=== PATIENT | female | born 1965 | race Caucasian/White ===

== ENCOUNTER 2019-01-26 00:41 | Emergency (ER) | payer MEDICARE ==
--- NOTE | 2019-01-26 01:06 | EDM.PDOCBH ---
ED HPI GENERAL MEDICAL PROBLEM - General Chief Complaint: Behavioral/Psych Stated Complaint: INTOXICATED AND MENTAL HEALTH Time Seen by Provider: 01/26/19 00:46 Source of Information: Reports: Patient, Police History Limitations: Reports: Intoxication - History of Present Illness INITIAL COMMENTS - FREE TEXT/NARRATIVE: The patient presents with the [employer] for alcohol intoxication and suicidal and homicidal ideation. The patient does admit to drinking heavily tonight. She says she did this because she is off all of her medications for a month. She moved here from [place] and her doctor was going to send her prescriptions up here but it did not go through. She says she has been seen at [facility] and she is scheduled to see a doctor on the . She says she has PTSD, anxiety and depression. She has no chest pain or shortness of breath now. She has no abdominal pain, nausea or vomiting. Onset: Gradual Duration: Hour(s): Severity: Moderate Improves with: Reports: None Worsens with: Reports: None Associated Symptoms: Reports: No Other Symptoms - Related Data Allergies Allergy/AdvReac Type Severity Reaction Status Date / Time Sulfa (Sulfonamide Allergy Vomiting Verified 01/26/19 00:58 Antibiotics) ED ROS GENERAL - Review of Systems Review Of Systems: See Below Constitutional: Reports: No Symptoms HEENT: Reports: No Symptoms Respiratory: Reports: No Symptoms Cardiovascular: Reports: No Symptoms Endocrine: Reports: No Symptoms GI/Abdominal: Reports: No Symptoms : Reports: No Symptoms Musculoskeletal: Reports: No Symptoms Skin: Reports: No Symptoms Neurological: Reports: No Symptoms Psychiatric: Reports: Suicidal Ideation ED EXAM, BEHAVIORAL HEALTH - Physical Exam Exam: See Below Exam Limited By: Intoxication General Appearance: Alert, No Apparent Distress Ears: Normal External Exam Nose: Normal Inspection Head: Atraumatic, Normocephalic Neck: Normal Inspection Respiratory/Chest: No Respiratory Distress, Lungs Clear, Normal Breath Sounds Cardiovascular: Regular Rate, Rhythm, No Edema, No Murmur GI/Abdominal: Soft, Non-Tender, No Organomegaly, No Mass Back Exam: Normal Inspection Extremities: Normal Inspection Neurological: Alert, No Motor/Sensory Deficits, Other (Slurred speech) Psychiatric: Alert COURSE, BEHAVIORAL HEALTH COMP - Course Vital Signs: Last Vital Signs Temp 96.8 F 01/26/19 00:54 Pulse 96 01/26/19 00:54 Resp 19 01/26/19 00:54 BP 108/76 01/26/19 00:54 Pulse Ox 94 L 01/26/19 00:54 Orders, Labs, Meds: Active Orders 24 hr Category Date Time Status Cardiac Monitoring [RC] . DIRECTED Care 01/26/19 00:53 Active Laboratory Tests 01/26/19 01/26/19 01/26/19 Range/Units 01:03 01:03 01:03 WBC 7.02 (3.98-10.04) K/mm3 RBC 4.70 (3.98-5.22) M/mm3 Hgb 15.0 (11.2-15.7) gm/L Hct 43.3 (34.1-44.9) % MCV 92.1 (79.4-94.8) fl MCH 31.9 (25.6-32.2) pg MCHC 34.6 (32.2-35.5) g/dl RDW Std Deviation 42.9 (36.4-46.3) fL Plt Count 148 L (182-369) K/mm3 MPV 10.1 (9.4-12.3) fl Neut % (Auto) 26.6 L (34.0-71.1) % Lymph % (Auto) 64.2 H (19.3-51.7) % [place] % (Auto) 7.4 (4.7-12.5) % Eos % (Auto) 1.6 (0.7-5.8) Baso % (Auto) 0.1 (0.1-1.2) % Neut # (Auto) 1.86 (1.56-6.13) K/mm3 Lymph # (Auto) 4.51 H (1.18-3.74) K/mm3 [place] # (Auto) 0.52 H (0.24-0.36) K/mm3 Eos # (Auto) 0.11 (0.04-0.36) K/mm3 Baso # (Auto) 0.01 (0.01-0.08) K/mm3 Sodium 145 (136-145) mEq/L Potassium 2.7 L (3.5-5.1) mEq/L Chloride 107 (98-107) mEq/L Carbon Dioxide 23 (21-32) mEq/L Anion Gap 17.7 H (5-15) BUN 4 L (7-18) mg/dL Creatinine 0.8 (0.55-1.02) mg/dL Est Cr Clr Drug Dosing 68.27 mL/min Estimated GFR (MDRD) > 60 (>60) mL/min BUN/Creatinine Ratio 5.0 L (14-18) Glucose 138 H (74-106) mg/dL Calcium 8.9 (8.5-10.1) mg/dL Total Bilirubin 0.4 (0.2-1.0) mg/dL AST 45 H (15-37) U/L ALT 33 (14-59) U/L Alkaline Phosphatase 75 (46-116) U/L Total Protein 7.7 (6.4-8.2) g/dl Albumin 3.9 (3.4-5.0) g/dl Globulin 3.8 gm/dL Albumin/Globulin Ratio 1.0 (1-2) TSH 3rd Generation 4.966 H (0.358-3.74) uIU/mL Salicylates 4.6 (2.8-20) mg/dL Urine Opiates Screen (ZUWGBG=983) Ur Buprenorphine Scrn (CUTOFF=10) Ur Oxycodone Screen (TRM7LL=051) Urine Methadone Screen (BCHAVG=299) Ur Propoxyphene Screen (UCJELF=624) Acetaminophen 0 L (10-30) ug/mL Ur Barbiturates Screen (MYQVSK=130) Ur Tricyclics Screen (XOBUFE=792) Ur Phencyclidine Scrn (CUTOFF=25) Ur Amphetamine Screen (RGFHNV=065) U Methamphetamines Scrn (SHNKFB=382) U Benzodiazepines Scrn (JGQFXW=083) U Cocaine Metab Screen (QBWMCE=079) U Marijuana (THC) Screen (CUTOFF=50) Ethyl Alcohol 0.27 (0.00) gm% 01/26/19 Range/Units 01:10 WBC (3.98-10.04) K/mm3 RBC (3.98-5.22) M/mm3 Hgb (11.2-15.7) gm/L Hct (34.1-44.9) % MCV (79.4-94.8) fl MCH (25.6-32.2) pg MCHC (32.2-35.5) g/dl RDW Std Deviation (36.4-46.3) fL Plt Count (182-369) K/mm3 MPV (9.4-12.3) fl Neut % (Auto) (34.0-71.1) % Lymph % (Auto) (19.3-51.7) % [place] % (Auto) (4.7-12.5) % Eos % (Auto) (0.7-5.8) Baso % (Auto) (0.1-1.2) % Neut # (Auto) (1.56-6.13) K/mm3 Lymph # (Auto) (1.18-3.74) K/mm3 [place] # (Auto) (0.24-0.36) K/mm3 Eos # (Auto) (0.04-0.36) K/mm3 Baso # (Auto) (0.01-0.08) K/mm3 Sodium (136-145) mEq/L Potassium (3.5-5.1) mEq/L Chloride (98-107) mEq/L Carbon Dioxide (21-32) mEq/L Anion Gap (5-15) BUN (7-18) mg/dL Creatinine (0.55-1.02) mg/dL Est Cr Clr Drug Dosing mL/min Estimated GFR (MDRD) (>60) mL/min BUN/Creatinine Ratio (14-18) Glucose (74-106) mg/dL Calcium (8.5-10.1) mg/dL Total Bilirubin (0.2-1.0) mg/dL AST (15-37) U/L ALT (14-59) U/L Alkaline Phosphatase (46-116) U/L Total Protein (6.4-8.2) g/dl Albumin (3.4-5.0) g/dl Globulin gm/dL Albumin/Globulin Ratio (1-2) TSH 3rd Generation (0.358-3.74) uIU/mL Salicylates (2.8-20) mg/dL Urine Opiates Screen Negative (XMLMIL=623) Ur Buprenorphine Scrn Negative (CUTOFF=10) Ur Oxycodone Screen Negative (MWO1HF=359) Urine Methadone Screen Negative (ZTJMED=844) Ur Propoxyphene Screen Negative (ZNDBJB=961) Acetaminophen (10-30) ug/mL Ur Barbiturates Screen Negative (YNGLVP=221) Ur Tricyclics Screen Negative (HQRGTX=798) Ur Phencyclidine Scrn Negative (CUTOFF=25) Ur Amphetamine Screen Negative (EVWPTP=375) U Methamphetamines Scrn Negative (SJOZKP=804) U Benzodiazepines Scrn Negative (ZZODYH=279) U Cocaine Metab Screen Negative (EPAWKI=969) U Marijuana (THC) Screen Presumptive positive H (CUTOFF=50) Ethyl Alcohol (0.00) gm% Re-Assessment/Re-Exam: I ordered labs and a urine drug screen. Her CBC looks good. her K was low at 2.7. Her anion gap is elevated at 17.7. Her glucose is elevated at 136. Her AST is elevated at 45. Her TSH is slightly elevated at 4.966. Her salicylates are normal. Her acetaminophen is negative. Her urine drug screen was positive for marijuana. Her ETOH is elevated at 0.27. I feel she may need some help but she is intoxicated now. I will let her rest here until morning and get her some help. She slept for awhile and when she woke up she was more calm and making more sense. She asked if she was on a hold and my nurse told her no. We were just letting her rest and then going to call [facility] in the morning. She wanted to leave so I discharged her. I do not think she is suicidal. Departure - Departure Time of Disposition: 03:30 Disposition: Home, Self-Care 01 Condition: Good Clinical Impression: Alcohol abuse, Hypokalemia Alcohol intoxication Qualifiers: Complication of substance-induced condition: uncomplicated Qualified Code(s): F10.920 - Alcohol use, unspecified with intoxication, uncomplicated - Discharge Information *PRESCRIPTION DRUG MONITORING PROGRAM REVIEWED*: Not Applicable *COPY OF PRESCRIPTION DRUG MONITORING REPORT IN PATIENT GISELLA: Not Applicable Referrals: PCP,None [Primary Care Provider] - Emily Darby PA-C [Physician Day Care Home Provider] - 1 Week Forms: ED Department Discharge Additional Instructions: Call [facility] in the morning. Their number is . Take a vitamin with potassium. Follow up with your doctor within a week. Please return if you are worse. - My Orders Last 24 Hours: My Active Orders 01/26/19 00:53 Cardiac Monitoring [RC] . DIRECTED - Assessment/Plan Last 24 Hours: My Active Orders 01/26/19 00:53 Cardiac Monitoring [RC] . DIRECTED
[2019-01-26 01:42] LABS: ACETAMINOPHEN 0 ug/mL (10-30)
== END 2019-01-26 03:30 | disposition home or self-care (01) ==
LOC: JD.ED 00:41
DX: F10.129 Alcohol abuse with intoxication, unspecified (principal); E87.6 Hypokalemia; Z88.2 Allergy status to sulfonamides; Y90.0 Blood alcohol level of less than 20 mg/100 ml
CPT/HCPCS: 36415; 80053; 80306; 84443; 85025; 99285; G0480; 99282

== ENCOUNTER 2019-01-26 06:39 | Emergency (ER) | payer MEDICARE ==
[2019-01-26] MEDS ORDERED: LORazepam 1 MG Tab PO ONE (07:33)
[2019-01-26] MEDS ORDERED: risperiDONE 1 MG Tab PO ONE (07:34)
--- NOTE | 2019-01-26 07:47 | EDM.PDOCBH ---
ED HPI GENERAL MEDICAL PROBLEM - General Chief Complaint: Behavioral/Psych Stated Complaint: SUICIDAL AND HOMICIDAL IDEATIONS/ MENTAL HEALTH Time Seen by Provider: 01/26/19 07:21 Source of Information: Reports: Patient, RN Notes Reviewed - History of Present Illness INITIAL COMMENTS - FREE TEXT/NARRATIVE: Patient returns to ED with mental health concerns. She has moved here from [place] apparently following her boyfriend or former . She is out or completely off of medication. She states she has been told she has history of bipolar and schizophrenia. She is apparently self-medicating with alcohol. She was een here in the ED a few hours ago moderately intoxicated. She was medically cleared and the plan was to allow her to wait for someone from [facility] to come pick her up and see her this morning but she self discharged apparently needing to "go get a smoke". Now she registered again a short time ago with no new concerns, mainly wanting to get back on her prior medications. She does feel anxious and "stressed out" especially being off of her medications. She denies any suicidal thoughts or any thoughts of self -harm at this time. She denies any current hallucinations. - Related Data Allergies Allergy/AdvReac Type Severity Reaction Status Date / Time Sulfa (Sulfonamide Allergy Vomiting Verified 01/26/19 07:14 Antibiotics) Home Meds: Home Meds Potassium Chloride 10 meq PO DAILY #30 tablet.er 01/26/19 [Rx] Past Medical History Psychiatric History: Reports: Anxiety, PTSD - Infectious Disease History Infectious Disease History: Reports: Hepatitis C ED ROS GENERAL - Review of Systems Review Of Systems: See Below Constitutional: Reports: No Symptoms HEENT: Denies: Throat Pain Respiratory: Denies: Shortness of Breath Cardiovascular: Denies: Chest Pain GI/Abdominal: Denies: Abdominal Pain, Nausea, Vomiting Musculoskeletal: Reports: No Symptoms Skin: Reports: No Symptoms Neurological: Reports: No Symptoms ED EXAM, BEHAVIORAL HEALTH - Physical Exam Exam: See Below General Appearance: Alert, No Apparent Distress Eye Exam: Bilateral Eye: PERRL Throat/Mouth: Normal Inspection Head: Atraumatic Neck: Supple Respiratory/Chest: No Respiratory Distress, Lungs Clear, Normal Breath Sounds Cardiovascular: Regular Rate, Rhythm GI/Abdominal: Non-Tender Extremities: Normal Inspection, Normal Range of Motion Neurological: Alert, No Motor/Sensory Deficits Psychiatric: Alert, Normal Mood, Other (Answering questions appropriately at this time). No: Flight of Ideas, Suicidal Plan, Suicidal Thoughts Skin Exam: Warm, Dry, Normal color COURSE, BEHAVIORAL HEALTH COMP - Course Vital Signs: Last Vital Signs Temp 97.8 F 01/26/19 07:10 Pulse 99 01/26/19 07:10 Resp 16 01/26/19 07:10 BP 111/77 01/26/19 07:10 Pulse Ox 98 01/26/19 07:10 Orders, Labs, Meds: Medications Discontinued Medications Generic Name Dose Route Start Last Admin Trade Name Kari PRN Reason Stop Dose Admin Lorazepam 1 mg 01/26/19 07:33 01/26/19 07:42 Ativan PO 01/26/19 07:34 1 mg ONETIME ONE Administration Potassium Chloride 40 meq 01/26/19 07:59 01/26/19 08:06 Klor-Con M20 PO 01/26/19 08:00 40 meq ONETIME ONE Administration Risperidone 1 mg 01/26/19 07:34 01/26/19 07:42 Risperidal PO 01/26/19 07:35 1 mg BEDTIME ONE Administration Medical Clearance: 01/26/19 07:54 Patient is exhibiting no thoughts or threats of self-harm at this time. She does feel anxious, does feel "stressed out", does feel a need to get back on her former medication. Will treat with 1 mg Ativan orally and also Risperdal 1 mg oral at this time. It is my understanding that [facility] has been notified and will be coming to pick her up shortly. Departure - Departure Time of Disposition: 08:30 Disposition: Home, Self-Care 01 Condition: Fair Clinical Impression: Depressive disorder, Anxiety, Hypokalemia - Discharge Information Prescriptions: Potassium Chloride 10 meq PO DAILY #30 tablet.er Instructions: Major Depressive Disorder, Adult Referrals: PCP,None [Primary Care Provider] - Forms: ED Department Discharge Additional Instructions: your potassium was low today. Try eat plenty of fruit and vegetables. Bananas and potatoes are especially good sources of potassium. Potassium supplement 10 mEq daily for now. A medical screening exam has been done twice this morning. No acute emergency medical condition is apparent at this time. Work with staff at [facility] for counseling, further medical treatment as needed.
[2019-01-26] MEDS ORDERED: Potassium Chloride 20 MEQ Tab.ER PO ONE (07:59)
== END 2019-01-26 08:20 | disposition home or self-care (01) ==
LOC: JD.ED 06:39
DX: F32.9 Major depressive disorder, single episode, unspecified (principal); F41.9 Anxiety disorder, unspecified; E87.6 Hypokalemia; Z79.899 Other long term (current) drug therapy; Z88.2 Allergy status to sulfonamides
CPT/HCPCS: 99284; A9270; 99283

== ENCOUNTER 2019-01-29 11:34 | Emergency (ER) | payer MEDICARE ==
--- NOTE | 2019-01-29 12:55 | EDM.PDOCBH ---
ED HPI GENERAL MEDICAL PROBLEM - General Chief Complaint: Behavioral/Psych Stated Complaint: PT STATED SHE FEELS LIKE SHE IS DYING Time Seen by Provider: 01/29/19 12:05 Source of Information: Reports: Patient History Limitations: Reports: No Limitations - History of Present Illness INITIAL COMMENTS - FREE TEXT/NARRATIVE: Patient is a 54-year-old female with a history of bipolar, anxiety, depression, PTSD, and schizophrenia who presents ED with a social work therapist from [facility] wishing to obtain a medication to help her sleep. Patient has not been taking any medications for these conditions for almost one month. Patient moved to [facility] from [place] to be closer to her son. She was unable to fill these prescriptions. She has appointment with her psychologist February 07, 2019 at [facility]. In addition she has appointment with a therapist for this coming Tuesday at [facility]. Patient states she has not slept for 3 days. She has no suicidal ideations or plan in place to hurt herself. She has been hospitalized 7 different times for suicidal ideations and attempts. She denies any hallucinations. She has been consuming alcohol on intermittent basis. Last used 3 days ago. Patient does feel safe at her residence. She does use marijuana on monthly basis. - Related Data Allergies Allergy/AdvReac Type Severity Reaction Status Date / Time Sulfa (Sulfonamide Allergy Vomiting Verified 01/29/19 11:43 Antibiotics) Home Meds: Home Meds Potassium Chloride 10 meq PO DAILY #30 tablet.er 01/26/19 [Rx] Escitalopram [Lexapro] 10 mg PO DAILY 01/29/19 [History] OXcarbazepine [Oxcarbazepine] 1,200 mg PO BEDTIME 01/29/19 [History] OXcarbazepine [Oxcarbazepine] 600 mg PO DAILY 01/29/19 [History] QUEtiapine Fumarate [Quetiapine Fumarate] 600 mg PO BEDTIME 01/29/19 [History] clonazePAM [Clonazepam] 1 mg PO BEDTIME #10 tab.rapdis 01/29/19 [Rx] clonazePAM [Klonopin] 0.5 mg PO QAM #10 tablet 01/29/19 [Rx] traZODone HCl [Trazodone HCl] 100 mg PO BEDTIME 01/29/19 [History] Past Medical History - Past Health History Medical/Surgical History: Denies Medical/Surgical History HEENT History: Reports: Impaired Vision Cardiovascular History: Reports: None Respiratory History: Reports: None Gastrointestinal History: Reports: Chronic Constipation Genitourinary History: Reports: None 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: Musculoskeletal History: Reports: None Neurological History: Reports: None Psychiatric History: Reports: Anxiety, Bipolar, Depression, PTSD, Schizophrenia Endocrine/Metabolic History: Reports: None Hematologic History: Reports: None Immunologic History: Reports: None Oncologic (Cancer) History: Reports: None Dermatologic History: Reports: None - Infectious Disease History Infectious Disease History: Reports: Hepatitis C - Past Surgical History Head Surgeries/Procedures: Reports: None HEENT Surgical History: Reports: Oral Surgery GI Surgical History: Reports: None Female Surgical History: Reports: Tubal Ligation Social & Family History - Family History Family Medical History: Noncontributory HEENT: Reports: None Cardiac: Reports: CAD, [place] Respiratory: Reports: Other (See Below) Other Respiratory Family Hisory: valley fever, GI: Reports: None : Reports: None OBGYN: Reports: None Musculoskeletal: Reports: None Neurological: Reports: CVA Psychiatric: Reports: Bipolar, Depression Endocrine/Metabolic: Reports: None Hematologic: Reports: None Oncologic: Reports: Other (See Below) Other Oncologic Family History: melanoma - Tobacco Use Smoking Status *Q: Current Every Day Smoker Years of Tobacco use: 5 Packs/Tins Daily: 1 - Caffeine Use Caffeine Use: Reports: Coffee - Recreational Drug Use Recreational Drug Use: Yes Drug Use in Last 12 Months: Yes Recreational Drug Type: Reports: Marijuana/Hashish Recreational Drug Use Frequency: Monthly ED ROS GENERAL - Review of Systems Review Of Systems: ROS reveals no pertinent complaints other than HPI. ED EXAM, BEHAVIORAL HEALTH - Physical Exam Exam: See Below Exam Limited By: No Limitations General Appearance: Alert, WD/WN, Anxious Eye Exam: Bilateral Eye: Normal Inspection Ears: Hearing Grossly Normal Nose: Normal Inspection Throat/Mouth: Normal Voice, No Airway Compromise Neck: Normal Inspection, Supple Respiratory/Chest: No Respiratory Distress, Lungs Clear, Normal Breath Sounds, No Accessory Muscle Use Cardiovascular: Normal Peripheral Pulses, Regular Rate, Rhythm, No Murmur Back Exam: Normal Inspection Extremities: Normal Inspection Neurological: Alert, Normal Mood/Affect, CN II-XII Intact, Normal Cognition, No Motor/Sensory Deficits, Oriented x 3 Psychiatric: Alert, Normal Affect, Normal Cognition, Oriented, Tearful. No: Depressed Mood, Flat Affect, Incoherent, Restless, Agitated, Disoriented, Inattentive, Non-Communicative, Poor Eye Contact, Uncooperative, Withdrawn, Flight of Ideas, Homicidal Thoughts, Phobic, Religion Delusions, Suicidal Plan , Suicidal Thoughts, Tangential Thoughts, Auditory Hallucinations, Visual Hallucinations, Grandiose Thoughts, Pressured Speech, Paranoid Thoughts, Threatening Behavior Skin Exam: Warm, Dry, Intact, Normal color, No rash COURSE, BEHAVIORAL HEALTH COMP - Course Vital Signs: Last Vital Signs Temp 97.1 F 01/29/19 11:49 Pulse 94 01/29/19 11:49 Resp 16 01/29/19 11:49 BP 121/73 01/29/19 11:49 Pulse Ox 100 01/29/19 11:49 Re-Assessment/Re-Exam: Patient's medication list was faxed to our facility from [facility] pharmacy. Patient was on clonazepam 0.5 mg twice a day and 1 mg at at bedtime. This was not clonidine. She is on also multitude other medications. See medication list. I have also reviewed previous ED visit. Patient was diagnosed with hypokalemia and provided a prescription for potassium chloride to which the patient has not filled. The social work therapist present states they will fill both the clonazepam and also potassium chloride. I will provide a prescription for 0.5 mg at qam and also 1 mg at night. Prescription will be extended through the 07 of February until she sees a psychologist. I have informed the patient to refrain from utilization of alcohol. No driving while taking this medication. Return precautions were discussed with the patient. Patient had no further questions or concerns. Departure - Departure Time of Disposition: 14:42 Disposition: Home, Self-Care 01 Condition: Good Clinical Impression: Depressive disorder, Anxiety - Discharge Information Prescriptions: clonazePAM [Klonopin] 0.5 mg PO QAM #10 tablet clonazePAM [Clonazepam] 1 mg PO BEDTIME #10 tab.rapdis Instructions: Living With Depression, Living With Anxiety Referrals: PCP,None [Primary Care Provider] - Forms: ED Department Discharge Additional Instructions: Take the clonazepam as prescribed. Do not drink or drive while taking this medication. Keep appointment with psychologist as scheduled for February 07, 2019. Please return back to the ED if you develop any new or worsening symptoms. Refrain from alcohol use.
== END 2019-01-29 15:12 | disposition home or self-care (01) ==
LOC: JD.ED 11:34
DX: F32.9 Major depressive disorder, single episode, unspecified (principal); F41.9 Anxiety disorder, unspecified; F17.210 Nicotine dependence, cigarettes, uncomplicated; Z79.899 Other long term (current) drug therapy; Z88.2 Allergy status to sulfonamides
CPT/HCPCS: 99283

== ENCOUNTER 2019-03-03 02:42 | Emergency (ER) | payer MEDICARE, MEDICAID ==
--- NOTE | 2019-03-03 04:25 | EDM.PDOCBH ---
<Devyn Hanley - Last Filed: 03/03/19 04:15> ED HPI GENERAL MEDICAL PROBLEM - General Chief Complaint: Behavioral/Psych Stated Complaint: MENTAL HEALTH Time Seen by Provider: 03/03/19 02:45 - History of Present Illness INITIAL COMMENTS - FREE TEXT/NARRATIVE: 54-year-old female brought in police with suicidal ideation Patient stated she thought about taking a handful of pills going to sleep and not waking up however she did not attempt this she also mentioned that she might take a knife to her neck. The patient is been drinking tonight and is acutely intoxicated at this point. Patient was here 3 times last month with anxiety depression and suicidal thoughts. Patient states she's been in inpatient treatment 7 times. And recently she's been under a lot of stress she' s recently moved here from [place] and was just recently restarted back on her medication. She denies any pain at this time. She also denies any illnesses at this time. She has been under a lot of stress with sick relatives that she cannot visit. She does state that she thinks her depression is getting worse. - Related Data Allergies Allergy/AdvReac Type Severity Reaction Status Date / Time Sulfa (Sulfonamide Allergy Vomiting Verified 03/03/19 02:55 Antibiotics) Home Meds: Home Meds Potassium Chloride 10 meq PO DAILY #30 tablet.er 01/26/19 [Rx] traZODone HCl [Trazodone HCl] 100 mg PO BEDTIME 01/29/19 [History] ClonazePAM [KlonoPIN] 0.5 mg PO ASDIRECTED 03/03/19 [History] lamoTRIgine [Lamictal] 10 mg PO DAILY 03/03/19 [History] Past Medical History - Past Health History Medical/Surgical History: Denies Medical/Surgical History HEENT History: Reports: Impaired Vision Cardiovascular History: Reports: None Respiratory History: Reports: None Gastrointestinal History: Reports: Chronic Constipation Genitourinary History: Reports: None 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: Musculoskeletal History: Reports: None Neurological History: Reports: None Psychiatric History: Reports: Anxiety, Bipolar, Depression, PTSD, Schizophrenia Endocrine/Metabolic History: Reports: None Hematologic History: Reports: None Immunologic History: Reports: None Oncologic (Cancer) History: Reports: None Dermatologic History: Reports: None - Infectious Disease History Infectious Disease History: Reports: Hepatitis C - Past Surgical History Head Surgeries/Procedures: Reports: None HEENT Surgical History: Reports: Oral Surgery GI Surgical History: Reports: None Female Surgical History: Reports: Tubal Ligation Social & Family History - Family History Family Medical History: Noncontributory HEENT: Reports: None Cardiac: Reports: CAD, [place] Respiratory: Reports: Other (See Below) Other Respiratory Family Hisory: valley fever, GI: Reports: None : Reports: None OBGYN: Reports: None Musculoskeletal: Reports: None Neurological: Reports: CVA Psychiatric: Reports: Bipolar, Depression Endocrine/Metabolic: Reports: None Hematologic: Reports: None Oncologic: Reports: Other (See Below) Other Oncologic Family History: melanoma - Tobacco Use Smoking Status *Q: Current Every Day Smoker Years of Tobacco use: 3 Packs/Tins Daily: 0.3 - Caffeine Use Caffeine Use: Reports: Coffee, Soda - Recreational Drug Use Recreational Drug Use: No ED ROS GENERAL - Review of Systems Review Of Systems: See Below Constitutional: Reports: No Symptoms HEENT: Reports: No Symptoms Respiratory: Reports: No Symptoms Cardiovascular: Reports: No Symptoms Endocrine: Reports: No Symptoms GI/Abdominal: Reports: No Symptoms : Reports: No Symptoms Musculoskeletal: Reports: No Symptoms Skin: Reports: No Symptoms Neurological: Reports: No Symptoms Psychiatric: Reports: Anxiety, Depression, Suicidal Ideation. Denies: Hallucinations, Homicidal Ideation ED EXAM, BEHAVIORAL HEALTH - Physical Exam Exam: See Below Exam Limited By: Intoxication General Appearance: Alert, No Apparent Distress Eye Exam: Bilateral Eye: Normal Inspection Ears: Normal External Exam, Normal Canal, Hearing Grossly Normal, Normal TMs Nose: Normal Inspection, Normal Mucosa, No Blood Throat/Mouth: Normal Inspection, Normal Lips, Normal Gums, Normal Oropharynx, Normal Voice, No Airway Compromise Head: Atraumatic, Normocephalic Neck: Normal Inspection, Supple, Non-Tender, Full Range of Motion. No: Lymphadenopathy (L), Lymphadenopathy (R) Respiratory/Chest: No Respiratory Distress, Lungs Clear, Normal Breath Sounds Cardiovascular: Regular Rate, Rhythm, No Edema GI/Abdominal: Normal Bowel Sounds, Soft, Non-Tender Back Exam: Normal Inspection. No: CVA Tenderness (L), CVA Tenderness (R) Extremities: Normal Inspection, Non-Tender Neurological: Alert. No: Normal Cognition (She is intoxicated) Psychiatric: Alert, Depressed Mood, Flat Affect, Suicidal Thoughts. No: Agitated, Disoriented, Uncooperative, Homicidal Thoughts, Phobic, Mandaen Delusions, Suicidal Plan Skin Exam: Warm, Dry COURSE, BEHAVIORAL HEALTH COMP - Course Vital Signs: Last Vital Signs Temp 36.6 C 03/03/19 02:50 Pulse 85 03/03/19 02:50 Resp 16 03/03/19 02:50 BP 117/80 03/03/19 02:50 Pulse Ox 98 03/03/19 02:50 Orders, Labs, Meds: Active Orders 24 hr Category Date Time Status EKG Documentation Completion [RC] STAT Care 03/03/19 03:25 Active Laboratory Tests 03/03/19 03/03/19 03/03/19 Range/Units 03:40 03:40 03:40 WBC 7.59 (3.98-10.04) K/mm3 RBC 4.38 (3.98-5.22) M/mm3 Hgb 14.4 (11.2-15.7) gm/L Hct 41.2 (34.1-44.9) % MCV 94.1 (79.4-94.8) fl MCH 32.9 H (25.6-32.2) pg MCHC 35.0 (32.2-35.5) g/dl RDW Std Deviation 45.6 (36.4-46.3) fL Plt Count 174 L (182-369) K/mm3 MPV 10.4 (9.4-12.3) fl Neutrophils % (Manual) 28 L (40-60) % Band Neutrophils % 2 (0-10) % Lymphocytes % (Manual) 65 H (20-40) % Atypical Lymphs % 0 % Monocytes % (Manual) 4 (2-10) % Eosinophils % (Manual) 1 (0.7-5.8) % Basophils % (Manual) 0 L (0.1-1.2) Platelet Estimate Adequate Plt Morphology Comment Normal RBC Morph Comment Normal Sodium 146 H (136-145) mEq/L Potassium 2.8 L (3.5-5.1) mEq/L Chloride 106 (98-107) mEq/L Carbon Dioxide 29 (21-32) mEq/L Anion Gap 13.8 (5-15) BUN 5 L (7-18) mg/dL Creatinine 0.8 (0.55-1.02) mg/dL Est Cr Clr Drug Dosing 62.59 mL/min Estimated GFR (MDRD) > 60 (>60) mL/min BUN/Creatinine Ratio 6.3 L (14-18) Glucose 104 (74-106) mg/dL Calcium 8.7 (8.5-10.1) mg/dL Total Bilirubin 0.2 (0.2-1.0) mg/dL AST 42 H (15-37) U/L ALT 40 (14-59) U/L Alkaline Phosphatase 68 (46-116) U/L Total Protein 7.1 (6.4-8.2) g/dl Albumin 3.5 (3.4-5.0) g/dl Globulin 3.6 gm/dL Albumin/Globulin Ratio 1.0 (1-2) TSH 3rd Generation 3.440 (0.358-3.74) uIU/mL Urine Color (Yellow) Urine Appearance (Clear) Urine pH (5.0-8.0) Ur Specific Parker (1.005-1.030) Urine Protein (Negative) Urine Glucose (UA) (Negative) Urine Ketones (Negative) Urine Occult Blood (Negative) Urine Nitrite (Negative) Urine Bilirubin (Negative) Urine Urobilinogen (0.2-1.0) Ur Leukocyte Esterase (Negative) Urine RBC (0-5) /hpf Urine WBC (0-5) /hpf Ur Epithelial Cells (0-5) /hpf Urine Bacteria (FEW) /hpf Hyaline Casts (0-5) /lpf Urine Mucus (FEW) /hpf Salicylates 4.0 (2.8-20) mg/dL Urine Opiates Screen (LZRYMT=726) Ur Buprenorphine Scrn (CUTOFF=10) Ur Oxycodone Screen (JLB5IA=497) Urine Methadone Screen (UEEKMD=878) Ur Propoxyphene Screen (YBVVID=109) Acetaminophen 0 L (10-30) ug/mL Ur Barbiturates Screen (RGXHMM=762) Ur Tricyclics Screen (FEPYXB=581) Ur Phencyclidine Scrn (CUTOFF=25) Ur Amphetamine Screen (RYOCLO=203) U Methamphetamines Scrn (XOFFEF=722) U Benzodiazepines Scrn (KFKGTP=040) U Cocaine Metab Screen (EYFQIV=795) U Marijuana (THC) Screen (CUTOFF=50) Ethyl Alcohol 0.19 (0.00) gm% 03/03/19 03/03/19 Range/Units 05:42 05:42 WBC (3.98-10.04) K/mm3 RBC (3.98-5.22) M/mm3 Hgb (11.2-15.7) gm/L Hct (34.1-44.9) % MCV (79.4-94.8) fl MCH (25.6-32.2) pg MCHC (32.2-35.5) g/dl RDW Std Deviation (36.4-46.3) fL Plt Count (182-369) K/mm3 MPV (9.4-12.3) fl Neutrophils % (Manual) (40-60) % Band Neutrophils % (0-10) % Lymphocytes % (Manual) (20-40) % Atypical Lymphs % % Monocytes % (Manual) (2-10) % Eosinophils % (Manual) (0.7-5.8) % Basophils % (Manual) (0.1-1.2) Platelet Estimate Plt Morphology Comment RBC Morph Comment Sodium (136-145) mEq/L Potassium (3.5-5.1) mEq/L Chloride (98-107) mEq/L Carbon Dioxide (21-32) mEq/L Anion Gap (5-15) BUN (7-18) mg/dL Creatinine (0.55-1.02) mg/dL Est Cr Clr Drug Dosing mL/min Estimated GFR (MDRD) (>60) mL/min BUN/Creatinine Ratio (14-18) Glucose (74-106) mg/dL Calcium (8.5-10.1) mg/dL Total Bilirubin (0.2-1.0) mg/dL AST (15-37) U/L ALT (14-59) U/L Alkaline Phosphatase (46-116) U/L Total Protein (6.4-8.2) g/dl Albumin (3.4-5.0) g/dl Globulin gm/dL Albumin/Globulin Ratio (1-2) TSH 3rd Generation (0.358-3.74) uIU/mL Urine Color Yellow (Yellow) Urine Appearance Slt cloudy H (Clear) Urine pH 6.0 (5.0-8.0) Ur Specific Parker 1.020 (1.005-1.030) Urine Protein Negative (Negative) Urine Glucose (UA) Negative (Negative) Urine Ketones Trace H (Negative) Urine Occult Blood Negative (Negative) Urine Nitrite Negative (Negative) Urine Bilirubin Negative (Negative) Urine Urobilinogen 0.2 (0.2-1.0) Ur Leukocyte Esterase Trace H (Negative) Urine RBC 0-5 (0-5) /hpf Urine WBC 5-10 H (0-5) /hpf Ur Epithelial Cells 0-5 (0-5) /hpf Urine Bacteria Few (FEW) /hpf Hyaline Casts 10-20 H (0-5) /lpf Urine Mucus Moderate H (FEW) /hpf Salicylates (2.8-20) mg/dL Urine Opiates Screen Negative (XQAPIN=872) Ur Buprenorphine Scrn Negative (CUTOFF=10) Ur Oxycodone Screen Negative (BUQ0RX=334) Urine Methadone Screen Negative (MJBNIT=136) Ur Propoxyphene Screen Negative (QUMBGY=850) Acetaminophen (10-30) ug/mL Ur Barbiturates Screen Negative (AUAFVL=043) Ur Tricyclics Screen Negative (XDMXWN=430) Ur Phencyclidine Scrn Negative (CUTOFF=25) Ur Amphetamine Screen Negative (JTPLRM=783) U Methamphetamines Scrn Negative (BXWAJG=546) U Benzodiazepines Scrn Negative (PIYGLX=028) U Cocaine Metab Screen Negative (FAUDMZ=730) U Marijuana (THC) Screen Presumptive positive H (CUTOFF=50) Ethyl Alcohol (0.00) gm% Medications Discontinued Medications Generic Name Dose Route Start Last Admin Trade Name Freq PRN Reason Stop Dose Admin Potassium Chloride 40 meq 03/03/19 04:29 03/03/19 09:39 Klor-Con M20 PO 03/03/19 04:30 40 meq ONETIME ONE Administration Re-Assessment/Re-Exam Time: 05:34 (Patient is resting comfortably at this time she still has not given us a urine specimen were given a try and push the issue a little bit and see if she can go now I did discuss the situation with [facility] and their crisis counselor will be here between 8 and 8:30 this morning.) Departure - Departure Disposition: Home, Self-Care 01 Clinical Impression: Suicidal ideation Alcohol intoxication Qualifiers: Complication of substance-induced condition: uncomplicated Qualified Code(s): F10.920 - Alcohol use, unspecified with intoxication, uncomplicated - Discharge Information Referrals: PCP,Not In Area [Primary Care Provider] - Forms: ED Department Discharge Additional Instructions: You were seen in the emergency room for suicidal thoughts after taking excessive alcohol. You were evaluated by [facility], who felt that you are appropriate for discharge home. Do not drink alcohol. Please follow-up at [facility] human services this coming 03/05/2019: [address] Ojeda [phone] If any other problems, please do not hesitate to return to the ER. <Grady Chavarria A - Last Filed: 03/03/19 09:56> COURSE, BEHAVIORAL HEALTH COMP - Course Medical Clearance: 03/03/19 09:54 The patient was evaluated by [facility], who felt that she is fit for discharge home. They do not feel that she needs to be admitted. The patient would like to go home. Departure - Departure Time of Disposition: 09:54 Condition: Good - Discharge Information *PRESCRIPTION DRUG MONITORING PROGRAM REVIEWED*: Not Applicable *COPY OF PRESCRIPTION DRUG MONITORING REPORT IN PATIENT GISELLA: Not Applicable
[2019-03-03 04:28] LABS: ACETAMINOPHEN 0 ug/mL (10-30)
[2019-03-03] MEDS ORDERED: Potassium Chloride 20 MEQ Tab.ER PO ONE (04:29)
== END 2019-03-03 10:35 | disposition home or self-care (01) ==
LOC: JD.ED 02:42
DX: F32.9 Major depressive disorder, single episode, unspecified (principal); F10.129 Alcohol abuse with intoxication, unspecified; F17.210 Nicotine dependence, cigarettes, uncomplicated; Z98.51 Tubal ligation status; Z98.890 Other specified postprocedural states; Y90.6 Blood alcohol level of 120-199 mg/100 ml
CPT/HCPCS: 36415; 80053; 80306; 81001; 84443; 85007; 85027; 93005; 99285; A9270; G0480; 99283

== ENCOUNTER 2019-11-02 16:41 | Emergency (ER) | payer MEDICARE, MEDICAID ==
[2019-11-02] MEDS ORDERED: Orphenadrine 100 MG Tab.ER PO ONE (17:15)
[2019-11-02] MEDS ORDERED: Ketorolac 60 MG/2 ML SDV IM ONE (17:15)
--- NOTE | 2019-11-02 17:22 | EDM.PDOC ---
ED HPI GENERAL MEDICAL PROBLEM - General Chief Complaint: Abdominal Pain Stated Complaint: LOW ABD AND BACK PAIN Time Seen by Provider: 11/02/19 16:49 Source of Information: Reports: Patient, RN Notes Reviewed History Limitations: Reports: No Limitations - History of Present Illness INITIAL COMMENTS - FREE TEXT/NARRATIVE: Patient is a 54-year-old female who presents to the ED for a low back injury. The patient notes that on Tuesday she was on her grandsons hover board, for the first time ever, and she went to move when the hover board jerked and she fell onto the concrete pretty hard. She notes that she landed on her left lower back /flank area. She has been having some pain throughout the week. She did not hit her head, not she have any loss of consciousness, but states she did say that she hit the ground so hard that it knocked the wind out of her. She is not taking any sort of medications for pain at home. She is complaining of left posterior rib pain, and left flank/low back pain. She does note however that she has a history of recurrent UTIs, but she is not having any dysuria, frequency or urgency or any foul-smelling urine. Patient notes that the whole left flank area is tender to palpation. Left Abdomen Pain Score (Numeric/FACES): 6 - Related Data Allergies Allergy/AdvReac Type Severity Reaction Status Date / Time Sulfa (Sulfonamide Allergy Vomiting Verified 11/02/19 16:52 Antibiotics) Home Meds: Home Meds traZODone HCl [Trazodone HCl] 100 mg PO BEDTIME 01/29/19 [History] ClonazePAM [KlonoPIN] 0.5 mg PO ASDIRECTED 03/03/19 [History] lamoTRIgine [Lamictal] 10 mg PO DAILY 03/03/19 [History] Acetaminophen/oxyCODONE [Percocet 325-5 MG] 1 each PO Q6H PRN #20 tab 11/02/19 [ Rx] Orphenadrine [Norflex] 100 mg PO BID PRN #20 tab 11/02/19 [Rx] Past Medical History HEENT History: Reports: Impaired Vision Gastrointestinal History: Reports: Chronic Constipation Genitourinary History: Reports: UTI, Recurrent 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: Psychiatric History: Reports: Anxiety, Bipolar, Depression, PTSD, Schizophrenia - Infectious Disease History Infectious Disease History: Reports: Hepatitis C - Past Surgical History HEENT Surgical History: Reports: Oral Surgery GI Surgical History: Reports: Cholecystectomy Female Surgical History: Reports: Section, Tubal Ligation Social & Family History - Family History Family Medical History: Noncontributory HEENT: Reports: None Cardiac: Reports: CAD, [place] Respiratory: Reports: Other (See Below) Other Respiratory Family Hisory: valley fever, GI: Reports: None : Reports: None OBGYN: Reports: None Musculoskeletal: Reports: None Neurological: Reports: CVA Psychiatric: Reports: Bipolar, Depression Endocrine/Metabolic: Reports: None Hematologic: Reports: None Oncologic: Reports: Other (See Below) Other Oncologic Family History: melanoma - Tobacco Use Smoking Status *Q: Current Every Day Smoker Years of Tobacco use: 10 Packs/Tins Daily: 0.5 - Caffeine Use Caffeine Use: Reports: Coffee - Recreational Drug Use Recreational Drug Use: No ED ROS GENERAL - Review of Systems Review Of Systems: See Below Constitutional: Denies: Fever, Chills Respiratory: Denies: Shortness of Breath, Cough Cardiovascular: Reports: Chest Pain (Left posterior rib cage pain, hurts to take deep breath in) GI/Abdominal: Denies: Abdominal Pain, Diarrhea, Nausea, Vomiting : Reports: Flank Pain (L posterior flank). Denies: Discharge, Dysuria, Frequency, Hematuria, Urgency Musculoskeletal: Reports: Back Pain (Left posterior flank/back pain) Neurological: Denies: Numbness, Tingling, Gait Disturbance ED EXAM,LOWER BACK PAIN/INJURY - Physical Exam Exam: See Below Exam Limited By: No Limitations General Appearance: Alert, WD/WN, No Apparent Distress Eye Exam: Bilateral Eye: EOMI, Normal Inspection, PERRL Ears: Normal External Exam Nose: Normal Inspection Throat/Mouth: Normal Inspection, Normal Lips, Normal Teeth, Normal Gums, Normal Oropharynx, Normal Voice, No Airway Compromise Head: Atraumatic, Normocephalic Neck: Normal Inspection Respiratory/Chest: No Respiratory Distress, Lungs Clear, Normal Breath Sounds, No Accessory Muscle Use, Other (Tenderness to palpation on Left posterior inferior rib margin) Cardiovascular: Normal Peripheral Pulses, Regular Rate, Rhythm, No Edema, No Murmur GI/Abdominal: Normal Bowel Sounds, Soft, No Distention, No Mass, Tender (L flank mainly and into back) Back Exam: Normal Inspection, Muscle Spasm (Left lower back), Paraspinal Tenderness (Left) Extremities: Normal Inspection, Normal Range of Motion, Normal Capillary Refill Neurological: Alert, Normal Mood/Affect, Normal Dorsiflexion, Normal Plantar Flexion, Normal Gait, Normal Reflexes, No Motor/Sensory Deficits, Oriented x 3. No: Straight Leg Raise (L), Straight Leg Raise (R), Saddle Anesthesia Psychiatric: Normal Affect, Normal Mood Skin Exam: Warm, Dry, Intact, Normal Color, No Rash Course - Vital Signs Last Recorded V/S: Last Vital Signs Temp 98.9 F 11/02/19 16:47 Pulse 70 11/02/19 16:47 Resp 16 11/02/19 16:47 BP 121/79 11/02/19 16:47 Pulse Ox 100 11/02/19 16:47 - Orders/Labs/Meds Orders: Active Orders 24 hr Category Date Time Status Lumbar Spine 2 or 3V [CR] Stat Exams 11/02/19 17:14 Ordered Ribs 2V w Chest Lt [CR] Stat Exams 11/02/19 17:13 Ordered Labs: Laboratory Tests 11/02/19 Range/Units 17:03 Urine Color Yellow (Yellow) Urine Appearance Clear (Clear) Urine pH 6.5 (5.0-8.0) Ur Specific [place] > or = 1.030 (1.005-1.030) Urine Protein Negative (Negative) Urine Glucose (UA) Negative (Negative) Urine Ketones Negative (Negative) Urine Occult Blood Negative (Negative) Urine Nitrite Negative (Negative) Urine Bilirubin Negative (Negative) Urine Urobilinogen 0.2 (0.2-1.0) Ur Leukocyte Esterase Negative (Negative) Urine RBC 0-5 (0-5) /hpf Urine WBC 0-5 (0-5) /hpf Ur Squamous Epith Cells 5-10 H (0-5) /hpf Urine Bacteria Few (FEW) /hpf Urine Mucus Few (FEW) /hpf Meds: Medications Discontinued Medications Generic Name Dose Route Start Last Admin Trade Name Freq PRN Reason Stop Dose Admin Ketorolac Tromethamine 60 mg 11/02/19 17:15 11/02/19 17:48 Toradol IM 11/02/19 17:16 60 mg ONETIME ONE Administration Orphenadrine Citrate 100 mg 11/02/19 17:15 11/02/19 18:03 Norflex PO 11/02/19 17:16 100 mg ONETIME ONE Administration - Re-Assessments/Exams Free Text/Narrative Re-Assessment/Exam: 11/02/19 17:23 Patient presents to the ED for evaluation of a possible low back injury versus UTI. I believe the patient's pain is most likely due to the musculoskeletal injury. Have ordered left rib x-rays, and lumbar x-rays as well for evaluation and a urinalysis to rule out any sort of UTI at this time. Patient will be given 60 mg IM Toradol and 100 mg p.o. Norflex for initial management. 11/02/19 18:41 Patient's x-rays were done, lumbar spine looks to be within normal limits, no acute fracture or bony abnormalities. The rib x-rays did demonstrate a possible fracture on the posterior portion of the left rib cage around the fifth or sixth rib. This was appreciated by Dr. Mederos and myself. Upon reexamination, the patient is quite tender this area. So it is likely that there is a fractured rib. Official radiology reads are pending. It does not show any sign of pneumothorax or any other abnormalities. Patient will be sent home with some pain medication, muscle relaxer, and an incentive spirometer, and a work note to limit her to light duty. Departure - Departure Time of Disposition: 18:45 Disposition: Home, Self-Care 01 Condition: Fair Clinical Impression: Fall Qualifiers: Encounter type: initial encounter Qualified Code(s): W19.XXXA - Unspecified fall, initial encounter Closed rib fracture Qualifiers: Encounter type: initial encounter Rib fracture type: single rib Laterality: left Qualified Code(s): S22.32XA - Fracture of one rib, left side, initial encounter for closed fracture - Discharge Information *PRESCRIPTION DRUG MONITORING PROGRAM REVIEWED*: Yes *COPY OF PRESCRIPTION DRUG MONITORING REPORT IN PATIENT GISELLA: No Instructions: Rib Fracture, [id number] Referrals: PCP,None [Primary Care Provider] - Forms: ED Department Discharge, ED Return to Work/School Form Additional Instructions: You have been evaluated in the ED for your fall/injuries. Your x-ray demonstrated a possible rib fracture within the posterior fifth rib on the left side of your rib cage. Your lumbar x-rays demonstrated no fracture or bony abnormalities. Your urinalysis was within normal limits. It did not show any sign of infection. Please use ice/heat as tolerated to the affected area. You may take Tylenol 500 mg or ibuprofen 600mg q6 hrs for pain relief. Please do so until you have a tolerable level of pain with activity. Do not exceed 4000mg Tylenol, Do not exceed 3200mg ibuprofen in a 24 hour time period. You were given a prescription for a strong pain medication, oxycodone/ acetaminophen 5/325, please take 1 tab every 6 hours as needed for pain not relieved by Tylenol or ibuprofen alone. Please note this does contain Tylenol in it, so do not take more than 4000 mg in a 24-hour time span. These medications can be addictive, so please take as few as possible to achieve adequate pain control. These meds can also be quite constipating, recommend that you increase your oral fluid intake and take a stool softener like MiraLAX while taking these medications. Please make an appoint with your primary care provider, a week or 2 from now to have a reevaluation and to make sure that your symptoms are getting better as expected. Please return to ED if your symptoms should change or worsen. Sepsis Event Note - Evaluation Sepsis Screening Result: No Definite Risk - Focused Exam Vital Signs: Vital Signs Temp Pulse Resp BP Pulse Ox 11/02/19 16:47 98.9 F 70 16 121/79 100 Date Exam was Performed: 11/02/19 Time Exam was Performed: 18:41 - My Orders Last 24 Hours: My Active Orders 11/02/19 17:13 Ribs 2V w Chest Lt [CR] Stat 11/02/19 17:14 Lumbar Spine 2 or 3V [CR] Stat - Assessment/Plan Last 24 Hours: My Active Orders 11/02/19 17:13 Ribs 2V w Chest Lt [CR] Stat 11/02/19 17:14 Lumbar Spine 2 or 3V [CR] Stat
--- NOTE | 2019-11-04 15:58 | CR ---
Chest and left ribs: Frontal view of the chest was obtained as well as 3 views left ribs. Comparison: No previous study. Nodule is identified within the left mid to lower lung measuring approximately 1.2 cm. This does not appear to be calcified. Lungs otherwise are clear with no acute parenchymal change. Heart size and mediastinum are normal. Minimal scoliosis is noted within the spine. No discrete fracture or other left-sided rib abnormality is appreciated. Impression: 1. Nodule within the left mid to lower lung. Noncontrast chest CT strongly recommended as this does not appear to be calcified. 2. Nothing acute is otherwise seen on chest x-ray. No discrete left-sided rib abnormality is seen. Diagnostic code #9 This report was dictated in [place] Standard Time
--- NOTE | 2019-11-04 19:59 | CR ---
Lumbar spine: AP, lateral and cone-down lateral views centered to the lumbosacral junction were obtained. Comparison: No previous lumbar spine imaging. Severe disc space narrowing is noted at L5-S1 with endplate sclerosis. Other disc spaces are maintained. Vertebral body heights are maintained. Mild scattered endplate osteophytes are seen. Pedicles are intact. Visualized transverse and spinous processes are intact. Sacroiliac joints are within normal limits. Surgical clips are noted from prior cholecystectomy. Impression: 1. Severe disc space narrowing at L5-S1 with endplate sclerosis. 2. Mild endplate osteophytes. 3. Nothing acute is definitely appreciated on three-view lumbar spine exam. Diagnostic code #2 This report was dictated in [place] Standard Time
== END 2019-11-02 19:10 | disposition home or self-care (01) ==
LOC: JD.ED 16:41
DX: S22.32XA Fracture of one rib, left side, initial encounter for closed fracture (principal); F41.9 Anxiety disorder, unspecified; F32.9 Major depressive disorder, single episode, unspecified; F17.210 Nicotine dependence, cigarettes, uncomplicated; Z79.899 Other long term (current) drug therapy; Z88.2 Allergy status to sulfonamides; V00.181A Fall from other rolling-type pedestrian conveyance, initial encounter; Y93.89 Activity, other specified
CPT/HCPCS: 71101; 72100; 81001; 96372; 99283; A9270; J1885

== ENCOUNTER 2020-05-30 22:52 | Emergency (ER) | payer MEDICARE, MEDICAID ==
--- NOTE | 2020-05-30 23:51 | EDM.PDOCBH ---
ED HPI GENERAL MEDICAL PROBLEM - General Chief Complaint: Behavioral/Psych Stated Complaint: SUICIDAL THOUGHTS Time Seen by Provider: 05/30/20 23:18 Source of Information: Reports: Patient History Limitations: Reports: No Limitations - History of Present Illness INITIAL COMMENTS - FREE TEXT/NARRATIVE: This is a 55-year-old female. 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 Apparently she is somewhat depressed and has been drinking tonight. The construction ironworker helper convinced her to come to the ER because her anxiety medications are not working. Apparently the patient has lost 3 family members in the last couple of months and so she is depressed. She says that she felt like slicing her throat this evening but that she would not do it. She is crying uncontrollably at times asking why this is happening to her. Denies any recent physical maladies. The crisis individual did call the ER to let know that the patient was coming. The crisis person states that the patient is not suicidal and she is easy to talk down if she starts having those kind of thoughts. Pelvic Pain Score (Numeric/FACES): 10 - Related Data Allergies Allergy/AdvReac Type Severity Reaction Status Date / Time Sulfa (Sulfonamide Allergy Vomiting Verified 11/02/19 16:52 Antibiotics) Home Meds: Home Meds traZODone HCl [Trazodone HCl] 100 mg PO BEDTIME 01/29/19 [History] ClonazePAM [KlonoPIN] 0.5 mg PO TID 03/03/19 [History] lamoTRIgine [Lamictal] 10 mg PO DAILY 03/03/19 [History] Past Medical History HEENT History: Reports: Impaired Vision Cardiovascular History: Reports: None Respiratory History: Reports: None Gastrointestinal History: Reports: Chronic Constipation Genitourinary History: Reports: UTI, Recurrent [employer] [facility] History: Reports: Psychiatric History: Reports: Anxiety, Bipolar, Depression, PTSD, Schizophrenia Hematologic History: Reports: None Immunologic History: Reports: None Oncologic (Cancer) History: Reports: None - Infectious Disease History Infectious Disease History: Reports: Hepatitis C - Past Surgical History Head Surgeries/Procedures: Reports: None HEENT Surgical History: Reports: Oral Surgery GI Surgical History: Reports: Cholecystectomy Female Surgical History: Reports: Section, Tubal Ligation Social & Family History - Family History Family Medical History: Noncontributory HEENT: Reports: None Cardiac: Reports: CAD, [place] Respiratory: Reports: Other (See Below) Other Respiratory Family Hisory: valley fever, GI: Reports: None : Reports: None OBGYN: Reports: None Musculoskeletal: Reports: None Neurological: Reports: CVA Psychiatric: Reports: Bipolar, Depression Endocrine/Metabolic: Reports: None Hematologic: Reports: None Oncologic: Reports: Other (See Below) Other Oncologic Family History: melanoma - Tobacco Use Smoking Status *Q: Current Every Day Smoker Years of Tobacco use: 22 Packs/Tins Daily: 1 - Caffeine Use Caffeine Use: Reports: Coffee - Recreational Drug Use Recreational Drug Use: No ED ROS GENERAL - Review of Systems Review Of Systems: See Below Constitutional: Denies: Fever, Chills HEENT: Reports: No Symptoms Respiratory: Denies: Shortness of Breath, Cough Cardiovascular: Reports: No Symptoms Endocrine: Reports: No Symptoms GI/Abdominal: Reports: No Symptoms : Reports: No Symptoms Musculoskeletal: Reports: No Symptoms Skin: Reports: No Symptoms Neurological: Reports: No Symptoms Psychiatric: Reports: Anxiety, Depression Hematologic/Lymphatic: Reports: No Symptoms ED EXAM, BEHAVIORAL HEALTH - Physical Exam Exam: See Below Exam Limited By: No Limitations General Appearance: Alert, WD/WN, Mild Distress, Other (Patient appears to be lying sometimes uncontrollably with episodes of normal breathing and talking) Eye Exam: Bilateral Eye: Normal Inspection Ears: Normal External Exam Nose: Normal Inspection Throat/Mouth: Normal Inspection, Normal Lips, Normal Voice, No Airway Compromise Head: Normocephalic Neck: Supple Respiratory/Chest: No Respiratory Distress, Lungs Clear, Normal Breath Sounds Cardiovascular: Regular Rate, Rhythm, No Murmur GI/Abdominal: Soft Back Exam: Full Range of Motion Extremities: Normal Inspection, Normal Range of Motion Neurological: Alert Psychiatric: Alert, Depressed Mood, Other (Crying) Skin Exam: Warm, Dry COURSE, BEHAVIORAL HEALTH COMP - Course Vital Signs: Last Vital Signs Temp 98.0 F 05/30/20 23:32 Pulse 88 05/30/20 23:32 Resp 20 05/30/20 23:32 BP 100/70 05/30/20 23:32 Pulse Ox 95 05/30/20 23:32 Orders, Labs, Meds: Laboratory Tests 05/30/20 05/30/20 Range/Units 23:58 23:58 WBC 7.30 (3.98-10.04) K/mm3 RBC 4.58 (3.98-5.22) M/mm3 Hgb 15.1 (11.2-15.7) gm/dl Hct 43.3 (34.1-44.9) % MCV 94.5 (79.4-94.8) fl MCH 33.0 H (25.6-32.2) pg MCHC 34.9 (32.2-35.5) g/dl RDW Std Deviation 42.3 (36.4-46.3) fL Plt Count 178 L (182-369) K/mm3 MPV 9.9 (9.4-12.3) fl Neut % (Auto) 31.2 L (34.0-71.1) % Lymph % (Auto) 61.2 H (19.3-51.7) % Linn % (Auto) 5.3 (4.7-12.5) % Eos % (Auto) 1.9 (0.7-5.8) Baso % (Auto) 0.3 (0.1-1.2) % Neut # (Auto) 2.27 (1.56-6.13) K/mm3 Lymph # (Auto) 4.47 H (1.18-3.74) K/mm3 Linn # (Auto) 0.39 H (0.24-0.36) K/mm3 Eos # (Auto) 0.14 (0.04-0.36) K/mm3 Baso # (Auto) 0.02 (0.01-0.08) K/mm3 Sodium 144 (136-145) mEq/L Potassium 3.3 L (3.5-5.1) mEq/L Chloride 106 (98-107) mEq/L Carbon Dioxide 25 (21-32) mEq/L Anion Gap 16.3 H (5-15) BUN 6 L (7-18) mg/dL Creatinine 0.7 (0.55-1.02) mg/dL Est Cr Clr Drug Dosing 74.23 mL/min Estimated GFR (MDRD) > 60 (>60) mL/min BUN/Creatinine Ratio 8.6 L (14-18) Glucose 109 H (74-106) mg/dL Calcium 8.8 (8.5-10.1) mg/dL Total Bilirubin 0.3 (0.2-1.0) mg/dL AST 52 H (15-37) U/L ALT 54 (14-59) U/L Alkaline Phosphatase 68 (46-116) U/L Total Protein 7.4 (6.4-8.2) g/dl Albumin 3.7 (3.4-5.0) g/dl Globulin 3.7 gm/dL Albumin/Globulin Ratio 1.0 (1-2) Ethyl Alcohol 0.20 (0.00) gm% Discharge vs Psych Eval/Treatment:: 05/31/20 06:58 She has slept the entire time since she got here. She awakens now stating that she wants to go home and she is not feeling suicidal. I will discharge her home at this time. Departure - Departure Time of Disposition: 06:58 Disposition: Home, Self-Care 01 Condition: Fair Clinical Impression: Depressive disorder Acute alcohol intoxication Qualifiers: Complication of substance-induced condition: uncomplicated Qualified Code(s): F10.920 - Alcohol use, unspecified with intoxication, uncomplicated - Discharge Information *PRESCRIPTION DRUG MONITORING PROGRAM REVIEWED*: Not Applicable *COPY OF PRESCRIPTION DRUG MONITORING REPORT IN PATIENT GISELLA: Not Applicable Instructions: Living With Depression Referrals: PCP,Not In Area [Primary Care Provider] - Forms: ED Department Discharge Additional Instructions: Home and sleep is much as possible, please do not drink any alcohol for the next 24 hours, follow-up with [facility] your sadness and grief and depression, return to the ER if needed Sepsis Event Note (ED) - Evaluation Sepsis Screening Result: No Definite Risk - Focused Exam Vital Signs: Vital Signs Temp Pulse Resp BP Pulse Ox 05/30/20 23:32 98.0 F 88 20 100/70 95
== END 2020-05-31 07:23 | disposition home or self-care (01) ==
LOC: JD.ED 22:52
DX: F32.9 Major depressive disorder, single episode, unspecified (principal); F10.120 Alcohol abuse with intoxication, uncomplicated; Y90.7 Blood alcohol level of 200-239 mg/100 ml; F41.9 Anxiety disorder, unspecified; F17.210 Nicotine dependence, cigarettes, uncomplicated; Z88.2 Allergy status to sulfonamides; Z79.899 Other long term (current) drug therapy
CPT/HCPCS: 36415; 80053; 80307; 85025; 99283; 99284

== ENCOUNTER 2020-06-15 18:26 | Emergency (ER) | payer MEDICARE, MEDICAID ==
--- NOTE | 2020-06-15 21:28 | CR ---
Abdomen: Supine and upright views of the abdomen were obtained. Comparison: No prior study. Slightly prominent gas filled loops of bowel are noted within the right upper abdomen. This is most likely within the colon. Calcification seen within the pelvis. Bony structures are unremarkable. No free air is seen. Impression: 1. Prominent bowel gas within the right upper abdomen most likely within colon. No other bowel dilatation is seen. Uncertain if this represents focal ileus or early obstruction. If patient's symptoms persist, follow-up study could be considered in 12 hours to evaluate bowel gas pattern. 2. Other findings which are nonacute as noted above. Diagnostic code #3 This report was dictated in MDT
--- NOTE | 2020-06-15 21:45 | EDM.PDOC ---
ED HPI GENERAL MEDICAL PROBLEM - General Chief Complaint: Gastrointestinal Problem Stated Complaint: CONSTIPATION Time Seen by Provider: 06/15/20 20:06 Source of Information: Reports: Patient History Limitations: Reports: No Limitations - History of Present Illness INITIAL COMMENTS - FREE TEXT/NARRATIVE: Patient is a 55-year-old female who presents to the emergency department with complaints of abdominal bloating and lack of a bowel movement for the last 9 days. She is currently resident at the [facility]. States that yesterday they gave HER-2 doses of milk of mag, 1 in the morning and then 1 later in the evening. Today she drank prune juice, but has not been able to have a bowel movement. She states that she is not passing gas either. She denies any significant abdominal pain but states that she feels bloated. She has had no nausea or vomiting. Denies fever or chills. Lower Abdomen Pain Score (Numeric/FACES): 8 - Related Data Allergies Allergy/AdvReac Type Severity Reaction Status Date / Time Sulfa (Sulfonamide Allergy Vomiting Verified 06/15/20 20:00 Antibiotics) Home Meds: Home Meds traZODone HCl [Trazodone HCl] 100 mg PO BEDTIME 01/29/19 [History] ClonazePAM [KlonoPIN] 0.5 mg PO TID 03/03/19 [History] lamoTRIgine [Lamictal] 10 mg PO DAILY 03/03/19 [History] Past Medical History HEENT History: Reports: Impaired Vision Cardiovascular History: Reports: None Respiratory History: Reports: None Gastrointestinal History: Reports: Chronic Constipation Genitourinary History: Reports: UTI, Recurrent ENVIRONMENTAL AID History: Reports: Psychiatric History: Reports: Anxiety, Bipolar, Depression, PTSD, Schizophrenia Hematologic History: Reports: None Immunologic History: Reports: None Oncologic (Cancer) History: Reports: None - Infectious Disease History Infectious Disease History: Reports: Hepatitis C - Past Surgical History Head Surgeries/Procedures: Reports: None HEENT Surgical History: Reports: Oral Surgery GI Surgical History: Reports: Cholecystectomy Female Surgical History: Reports: Section, Tubal Ligation Social & Family History - Family History Family Medical History: Noncontributory HEENT: Reports: None Cardiac: Reports: CAD, [place] Respiratory: Reports: Other (See Below) Other Respiratory Family Hisory: valley fever, GI: Reports: None : Reports: None OBGYN: Reports: None Musculoskeletal: Reports: None Neurological: Reports: CVA Psychiatric: Reports: Bipolar, Depression Endocrine/Metabolic: Reports: None Hematologic: Reports: None Oncologic: Reports: Other (See Below) Other Oncologic Family History: melanoma - Tobacco Use Smoking Status *Q: Current Every Day Smoker Years of Tobacco use: 5 Packs/Tins Daily: 0.4 - Caffeine Use Caffeine Use: Reports: None - Recreational Drug Use Recreational Drug Use: No ED ROS GENERAL - Review of Systems Review Of Systems: See Below Constitutional: Reports: No Symptoms. Denies: Fever, Chills, Weakness HEENT: Reports: No Symptoms Respiratory: Reports: No Symptoms Cardiovascular: Reports: No Symptoms Endocrine: Reports: No Symptoms GI/Abdominal: Reports: Constipation, Distension. Denies: Abdominal Pain, Flatus, Nausea, Vomiting : Reports: No Symptoms Musculoskeletal: Reports: No Symptoms Skin: Reports: No Symptoms Neurological: Reports: No Symptoms Psychiatric: Reports: No Symptoms Hematologic/Lymphatic: Reports: No Symptoms Immunologic: Reports: No Symptoms ED EXAM, GI/ABD - Physical Exam Exam: See Below General Appearance: Alert, WD/WN, No Apparent Distress Respiratory/Chest: No Respiratory Distress, Lungs Clear, Normal Breath Sounds, No Accessory Muscle Use, Chest Non-Tender Cardiovascular: Normal Peripheral Pulses, Regular Rate, Rhythm, No Edema, No Gallop, No JVD, No Murmur, No Rub GI/Abdominal Exam: Soft, Non-Tender, No Organomegaly, No Distention, No Abnormal Bruit, No Mass, Pelvis Stable, Abnormal Bowel Sounds (Hypoactive in the right upper and right lower quadrants. ) Neurological: Alert, Oriented, CN II-XII Intact, Normal Cognition, Normal Gait, Normal Reflexes, No Motor/Sensory Deficits Psychiatric: Normal Affect, Normal Mood Skin Exam: Warm, Dry, Intact, Normal Color, No Rash Course - Vital Signs Last Recorded V/S: Last Vital Signs Temp 97.2 F 06/15/20 19:58 Pulse 57 L 06/15/20 19:58 Resp 16 06/15/20 19:58 BP 123/101 H 06/15/20 19:58 Pulse Ox 97 06/15/20 19:58 - Orders/Labs/Meds Meds: Medications Discontinued Medications Generic Name Dose Route Start Last Admin Trade Name Freq PRN Reason Stop Dose Admin Magnesium Citrate 296 ml 06/15/20 22:48 06/15/20 22:56 Citrate Of Magnesia PO 06/15/20 22:49 296 ml ONETIME ONE Administration - Re-Assessments/Exams Free Text/Narrative Re-Assessment/Exam: Abdomen flat and upright x-ray shows prominent bowel gas pattern within the right upper abdomen most likely within the colon. No other bowel dilatation is seen. Uncertain if this represents a focal ileus or early obstruction. If patient symptoms persist follow-up study could be considered in 12 hours to evaluate bowel gas pattern. Based on patient's report of not having a bowel movement for last 9 days, I have ordered a soapsuds enema to be completed. 06/15/20 22:47 Patient did have some small results with the small soapsuds enema. States she did also pass some gas and that she feels better than she did initially. We will discharge her home with a bottle of magnesium citrate. Discussed return precautions, including lack of a bowel movement after the magnesium citrate or worsening abdominal pain. She is in agreement with this plan and states that she will return if she has any problems. Discharge instructions as documented. Departure - Departure Time of Disposition: 22:49 Disposition: Home, Self-Care 01 Condition: Good Clinical Impression: Constipation Qualifiers: Constipation type: unspecified constipation type Qualified Code(s): K59.00 - Constipation, unspecified - Discharge Information *PRESCRIPTION DRUG MONITORING PROGRAM REVIEWED*: No *COPY OF PRESCRIPTION DRUG MONITORING REPORT IN PATIENT GISELLA: No Instructions: Constipation, Adult, [id number] Referrals: PCP,None [Primary Care Provider] - Forms: ED Department Discharge Additional Instructions: You were seen in the emergency department today for distention of your abdomen with lack of bowel movement for 9 days. X-rays of the abdomen were completed. Did show a collection of stool in the left side of your colon as well as some air prior to that. While in the ER you received a soapsuds enema which did produce a small bowel movement as well as allow you to pass some gas. You verbalized that your symptoms felt better. You have been discharged home with a bottle of magnesium citrate. Recommend that you drink this upon returning home. This will produce a number of bowel movements some of which may be loose but should relieve your symptoms. As we discussed, if you fail to have a bowel movement after drinking the magnesium citrate or if your symptoms should worsen in any way, you should return to the emergency department for reevaluation. If you do have good results after this, I would recommend that you ensure that you are taking in an adequate amount of fiber and water. You may take a daily stool softener such as Colace to help keep your stool regular. Sepsis Event Note (ED) - Evaluation Sepsis Screening Result: No Definite Risk
[2020-06-15] MEDS ORDERED: Magnesium Citrate Solution 296 ML Bottle PO ONE (22:48)
== END 2020-06-15 23:01 | disposition home or self-care (01) ==
LOC: JD.ED 18:26
DX: K59.00 Constipation, unspecified (principal); F41.9 Anxiety disorder, unspecified; F31.9 Bipolar disorder, unspecified; Z88.2 Allergy status to sulfonamides; Z79.899 Other long term (current) drug therapy; Z90.49 Acquired absence of other specified parts of digestive tract; Z98.51 Tubal ligation status
CPT/HCPCS: 74019; 99283; A9270; 99282

== ENCOUNTER 2024-08-24 10:05 | Emergency (ER) | payer MEDICARE, MEDICAID ==
[2024-08-24 11:38] LABS: BASOPHILS PERCENT AUTO 0.5 % (0.0-1.0); EOSINOPHILS ABSOLUTE AUTO 0.1 K/mm3 (0.0-0.4); EOSINOPHILS PERCENT AUTO 1.8 % (0.0-6.0); HEMATOCRIT 43.6 % (37.0-47.0); HEMOGLOBIN 15.1 gm/dl (12.0-16.0); IMMATURE GRAN ABSOLUTE AUTO 0.02 K/mm3 (0.00-0.05); IMMATURE GRAN PERCENT AUTO 0.3 % (0.0-0.4); LYMPHOCYTES ABSOLUTE AUTO 3.2 K/mm3 (1.0-4.8); LYMPHOCYTES PERCENT AUTO 43.4 % (24.0-44.0); MEAN CORPUSCULAR HEMOGLOBIN 32.6 pg (28.0-32.0); MEAN CORPUSCULAR HGB CONC 34.6 g/dl (32.0-36.0); MEAN CORPUSCULAR VOLUME 94.2 fl (83.0-99.0); MEAN PLATELET VOLUME 10.1 fl (9.4-12.3); MONOCYTES ABSOLUTE AUTO 0.6 K/mm3 (0.0-0.8); MONOCYTES PERCENT AUTO 8.2 % (0.0-8.0); NEUTROPHILS ABSOLUTE AUTO 3.4 K/mm3 (1.8-7.7); NEUTROPHILS PERCENT AUTO 45.8 % (41.0-71.0); PLATELET COUNT,PLT 197 K/mm3 (150-400); RED BLOOD CELL COUNT 4.63 M/mm3 (4.10-5.30); WHITE BLOOD CELL COUNT,WBC 7.31 K/mm3 (3.9-11.3)
[2024-08-24 11:58] LABS: A/G RATIO 1.1 (1-2); ALBUMIN 3.8 g/dl (3.4-5.0); ANION GAP 15.9 (5-15); BUN/CREATININE RATIO 8.6 (14-18); CALCIUM 9.2 mg/dL (8.5-10.1); CREATININE 0.7 mg/dL (0.55-1.02); EST CRCL DRUG DOSING (CG) 67.59 mL/min; POTASSIUM,K 3.9 mEq/L (3.5-5.1); PROTEIN TOTAL,TP 7.4 g/dl (6.4-8.2)
== END 2024-08-24 12:35 | disposition home or self-care (01) ==
LOC: JD.ED 10:05
DX: M53.3 Sacrococcygeal disorders, not elsewhere classified (principal); M54.9 Dorsalgia, unspecified; Z90.49 Acquired absence of other specified parts of digestive tract; Z79.899 Other long term (current) drug therapy; Z88.2 Allergy status to sulfonamides
CPT/HCPCS: 36415; 72125; 72125-26; 72192; 72192-26; 80053; 85025; 99284